=== PATIENT | female | born 1935 | race Caucasian/White ===

== ENCOUNTER 2019-02-28 11:20 | Inpatient (IN) | payer MEDICARE, MEDICAID ==
[~2019-02-28] VITALS: Ht 160 cm; Wt 54.9 kg
[~2019-02-28 11:20] MED LIST: ASPI-1073 PO; ATOR20TA PO; CLOP75TA4 PO; NAPR-677 PO
[2019-02-28] MEDS ORDERED: SODIUM CHLORIDE 0.9% 1,000 ML IV ONE (13:32)
[2019-02-28 14:13] LABS: BASOPHILS % 0.6 % (0.0-2.0); EOSINOPHILS % 1.3 % (0.0-5.0); HEMATOCRIT. 35.2 % (36.0-48.0); HEMOGLOBIN. 11.8 g/dL (12.0-16.0); LYMPHOCYTES % 38.2 % (20.0-50.0); MEAN CORPUSCULAR HEMOGLOBIN 31.9 pg (28.0-32.0); MEAN CORPUSCULAR VOLUME 95.4 fL (81.0-99.0); MEAN PLATELET VOLUME 7.9 fl (7.4-10.4); MONOCYTES % 5.4 % (2.0-8.0); NEUTROPHILS % 54.5 % (40.0-76.0); PLATELET 376 x1000/uL (130-400); RED BLOOD CELL COUNT 3.69 mill/uL (4.2-5.4); RED CELL DISTRIBUTION WIDTH 14.2 % (11.6-14.6)
[2019-02-28 14:16] LABS: CHLORIDE 105 mEq/L (98-107)
[2019-02-28 14:57] LABS: CLARITY URINE CLEAR (CLEAR); COLOR URINE YELLOW (YELLOW); KETONES URINE NEGATIVE (NEGATIVE); LEUKOCYTE ESTERASE URINE 1+ (NEGATIVE); NITRITE URINE NEGATIVE (NEGATIVE); OCCULT BLOOD URINE NEGATIVE (NEGATIVE); PROTEIN URINE NEGATIVE (NEGATIVE); SPECIFIC GRAVITY URINE 1.005 (1.005-1.030); UROBILINOGEN URINE 0.2 E.U./dL (0.2-1.0)
[2019-02-28] MEDS ORDERED: CEFTRIAXONE 2 G PREMIX 50 ML IV NR (17:00)
[2019-02-28] MEDS ORDERED: CLONIDINE 0.1MG TABLET PO PRN (19:15)
[2019-02-28] MEDS ORDERED: DEXTROSE 50% WATER 50ML SYRINGE IV PRN (19:15)
[2019-02-28] MEDS ORDERED: MAGNESIUM/ALUMINUM HYDROXIDE/SIMETHICONE 30ML UDC PO PRN (19:15)
[2019-02-28] MEDS ORDERED: ACETAMINOPHEN 325MG TABLET PO PRN (19:15)
[2019-02-28] MEDS ORDERED: DIPHENHYDRAMINE 50MG/ML VIAL IV PRN (19:15)
[2019-02-28] MEDS ORDERED: ONDANSETRON HCL 4MG/2ML INJ IV PRN (19:15)
[2019-02-28 21:00] VITALS: BP 209/75
[2019-02-28] MEDS: INSULIN LISPRO 100 UNITS/ML SUBCUT SCH (21:00)
[2019-02-28] MEDS: BLOOD SUGAR DIAGNOSTIC STRIP TEST SCH (21:58)
[2019-02-28 23:16] VITALS: BP 209/75
[2019-03-01] VITALS: BP 111/41
[2019-03-01] MEDS ORDERED: BENA40TA9 PO (00:43)
[2019-03-01] MEDS ORDERED: DORZ10DR8 EACHEYE (00:43)
[2019-03-01] MEDS ORDERED: TRIA1TAB92 MT (00:43)
[2019-03-01] MEDS ORDERED: METH4TAB PO (00:43)
[2019-03-01] MEDS ORDERED: TIMO5DRO32 OP (00:43)
[2019-03-01] MEDS ORDERED: LATA2.5D2 (00:43)
[2019-03-01] MEDS ORDERED: TRIA1TAB92 PO (00:43)
[2019-03-01] MEDS ORDERED: NAPROXEN 250MG TABLET PO PRN (01:45)
[2019-03-01 04:00] VITALS: BP 114/46
[2019-03-01] MEDS: DORZOLAMIDE 2% OPHTH 10 ML BOTTLE BOTHEYE SCH ×3 (05:54→21:02)
[2019-03-01] MEDS: SODIUM CHLORIDE 0.9% INJ 3ML FLUSH IVF SCH ×4 (05:54→21:06)
[2019-03-01] MEDS: BLOOD SUGAR DIAGNOSTIC STRIP TEST SCH ×4 (08:02→20:34)
[2019-03-01] MEDS: INSULIN LISPRO 100 UNITS/ML SUBCUT SCH ×4 (08:03→20:58)
[2019-03-01] MEDS: TRIAMTERENE/HYDROCHLOROTHIAZIDE 37.5/25MG CAPSULE PO SCH (08:53)
[2019-03-01] MEDS: TIMOLOL MALEATE 0.25% OPHTH DROPS 5ML EACHEYE SCH ×2 (08:55→21:00)
[2019-03-01] MEDS: GUAIFENESIN 600MG ER TABLET PO SCH ×2 (08:55→20:55)
[2019-03-01] MEDS: METFORMIN HCL 500MG TABLET PO SCH ×2 (08:55→18:41)
[2019-03-01] MEDS ORDERED: BENAZEPRIL 10MG TABLET PO SCH (09:00)
[2019-03-01 10:25] VITALS: BP 108/41
[2019-03-01 12:00] VITALS: BP 137/51
[2019-03-01 16:07] VITALS: BP 140/58
[2019-03-01] MEDS: BENAZEPRIL 10MG TABLET PO SCH (20:55)
[2019-03-01] MEDS ORDERED: LATANOPROST 0.005% OPHTH DROPS 2.5ML BOTHEYE SCH (21:00)
[2019-03-01] MEDS ORDERED: ATORVASTATIN CALCIUM 20MG TABLET PO SCH (21:00)
[2019-03-02 00:44] VITALS: BP 125/55
[2019-03-02 04:00] VITALS: BP 124/51
[2019-03-02] MEDS: DORZOLAMIDE 2% OPHTH 10 ML BOTTLE BOTHEYE SCH ×2 (06:57→13:49)
[2019-03-02] MEDS: SODIUM CHLORIDE 0.9% INJ 3ML FLUSH IVF SCH ×2 (06:57→14:00)
[2019-03-02] MEDS: BLOOD SUGAR DIAGNOSTIC STRIP TEST SCH ×2 (07:02→13:31)
[2019-03-02 08:00] VITALS: BP 168/62
[2019-03-02] MEDS: INSULIN LISPRO 100 UNITS/ML SUBCUT SCH ×2 (08:03→13:10)
[2019-03-02] MEDS: METFORMIN HCL 500MG TABLET PO SCH (09:14)
[2019-03-02] MEDS: GUAIFENESIN 600MG ER TABLET PO SCH (09:14)
[2019-03-02] MEDS: TRIAMTERENE/HYDROCHLOROTHIAZIDE 37.5/25MG CAPSULE PO SCH (09:14)
[2019-03-02] MEDS: BENAZEPRIL 10MG TABLET PO SCH (09:14)
[2019-03-02] MEDS: TIMOLOL MALEATE 0.25% OPHTH DROPS 5ML EACHEYE SCH (09:15)
[2019-03-02 12:00] VITALS: BP 148/68
[2019-03-02 15:50] VITALS: BP 148/68
[2019-03-02 16:00] VITALS: BP 138/79
== END 2019-03-02 16:46 | disposition home or self-care (01) | DRG 74 ==
LOC: ER 13:40 → 7WST 17:39 → EDBEDREQ 17:43 → ENRESERV 20:41
PROVIDERS: ADMIT Internal Medicine; ATTEND Internal Medicine
DX: G90.8 Other disorders of autonomic nervous system (principal); N39.0 Urinary tract infection, site not specified; I10 Essential (primary) hypertension; M19.90 Unspecified osteoarthritis, unspecified site; E78.00 Pure hypercholesterolemia, unspecified; J40 Bronchitis, not specified as acute or chronic; E11.649 Type 2 diabetes mellitus with hypoglycemia without coma; Z88.5 Allergy status to narcotic agent; Z79.899 Other long term (current) drug therapy; Z79.84 Long term (current) use of oral hypoglycemic drugs
CPT/HCPCS: 36415; 71045; 81003; 82962; 83036; 83735; 83880; 84484; 93005; 93970; 97161; 99285; J0696; J1815; J7030

== ENCOUNTER → 2020-08-06 | Outpatient (CLI) | payer MEDICARE, MEDICAID ==
[~2020-08-06] MED LIST changes: +CLOP-31 PO; -CLOP75TA4 PO; +DORZ10DR8 EACHEYE; +LATA2.5D14; +METH4TAB PO; +TIMO5DRO32 OP; +TRIA1TAB92 MT; +TRIA1TAB92 PO
== END | disposition home or self-care (01) ==
LOC: CT 13:55
PROVIDERS: ATTEND Internal Medicine Cardiovascular Disease
DX: I67.82 Cerebral ischemia (principal); G31.89 Other specified degenerative diseases of nervous system